=== PATIENT | male | born 1970 | race Caucasian/White ===

== ENCOUNTER → 2018-02-18 | Outpatient (REF) | payer BC | LOC: M LAB REF 13:16 | DX: J02.9 Acute pharyngitis, unspecified (principal) ==

== ENCOUNTER 2025-01-17 15:29 | Inpatient (IN) | payer BC ==
[~2025-01-17] VITALS: Ht 170.2 cm; Wt 126.8 kg
[2025-01-17 11:10] VITALS: BP 125/81; TEMP 101.5; O2SAT 97
[2025-01-17] MEDS ORDERED: HYDR-3363 PO (15:47)
[2025-01-17] MEDS ORDERED: PRAV40TA85 PO (15:47)
[2025-01-17] MEDS ORDERED: CLOTLOT2 TOP (15:47)
[2025-01-17] MEDS ORDERED: TALT80IN7 INJ (15:47)
[2025-01-17] MEDS ORDERED: BUPR15TASR PO (15:47)
[2025-01-17] MEDS ORDERED: PROP60CA PO (15:47)
[2025-01-17] MEDS ORDERED: TRAZ-252 PO (15:47)
[2025-01-17 16:18] LABS: BASO # 0.1 10^3/uL (0.0-0.2); BASO % 0.3 % (0.0-1.0); EOS # 0.1 10^3/uL (0.0-0.5); EOS % 0.7 % (0.0-3.0); LYMPH # 1.0 10^3/uL (1.5-5.0); LYMPH % 4.8 % (24.0-44.0); MONO # 1.0 10^3/uL (0.0-0.8); MONO % 4.8 % (2.0-8.0); NEUTROPHILS # 17.7 10^3/uL (1.5-8.5); NEUTROPHILS % 89.0 % (36.0-66.0); PLATELET COUNT, AUTOMATED 346 10^3/uL (150-450)
[2025-01-17 16:39] LABS: ALT/SGPT 30.0 U/L (7.0-40); AST/SGOT 26.0 U/L (<34)
[2025-01-17] MEDS ORDERED: ISOVUE-370 76% 100 ML VIAL As Ordered ONE (16:41)
[2025-01-17] MEDS: NS (Normal Saline) 0.9% 1,000 ML IV ONE ×2 (17:05→18:17)
[2025-01-17] MEDS: ACETAMINOPHEN *IV* 1,000 MG in IV 1 EA IV ONE (17:05)
[2025-01-17 17:35] LABS: CALCIUM LEVEL 9.2 MG/DL (8.5-10.1); CARBON DIOXIDE LEVEL 28.0 MMOL/L (20-31); CHLORIDE LEVEL 101.0 MMOL/L (98-107); CREATININE FOR GFR 1.19 MG/DL (0.70-1.30); GLOMERULAR FILTRATION RATE 72.1 (>56); POTASSIUM SERUM 5.0 MMOL/L (3.5-5.1); SODIUM LEVEL 139.0 MMOL/L (136-145)
[2025-01-17] MEDS: KETOROLAC 30 MG/ML 1 ML VIAL IV ONE (18:17)
[2025-01-17] MEDS ORDERED: LORA-243 PO (19:28)
[2025-01-17] MEDS ORDERED: THERTAB52 PO (19:28)
[2025-01-17] MEDS ORDERED: MED REC COMMENT (19:28)
[2025-01-17] MEDS ORDERED: HOME MED LIST COMPLETE! XX SCH (19:30)
[2025-01-17] MEDS: NS (Normal Saline) 0.9% 1,000 ML IV SCH (20:29)
[2025-01-17] MEDS: PIPERACILLIN/TAZOBACTAM SOD 3.375 GM in DEXTROSE 5% (D5W) ADV/MINI-BAG 50 ML IV SCH (21:29)
[2025-01-17] MEDS: PROPRANOLOL 60MG LA CAP PO SCH (21:32)
[2025-01-17 23:10] VITALS: BP 125/81; TEMP 101.5; O2SAT 97
[2025-01-18] VITALS (7 sets, daily range): BP systolic 113–134; BP diastolic 70–86; TEMP 97.9–101.8; O2SAT 95–98
[2025-01-18] MEDS: ACETAMINOPHEN *IV* 1,000 MG in IV 1 EA IV ONE (00:33)
[2025-01-18] MEDS: PANTOPRAZOLE 40MG VIAL IV SCH (08:15)
[2025-01-18] MEDS: RIVAROXABAN 10MG TAB PO SCH (08:15)
[2025-01-18] MEDS: KETOROLAC 30 MG/ML 1 ML VIAL IV PRN (08:23)
[2025-01-18 09:43] LABS: BASO % 0.1 % (0.0-1.0); EOS % 0.2 % (0.0-3.0); LYMPH % 4.5 % (24.0-44.0); MONO % 4.0 % (2.0-8.0); NEUTROPHILS % 90.7 % (36.0-66.0); PLATELET COUNT, AUTOMATED 290 10^3/uL (150-450)
[2025-01-18 09:44] LABS: BASO # 0.0 10^3/uL (0.0-0.2); EOS # 0.1 10^3/uL (0.0-0.5); LYMPH # 0.9 10^3/uL (1.5-5.0); MONO # 0.8 10^3/uL (0.0-0.8); NEUTROPHILS # 18.9 10^3/uL (1.5-8.5)
[2025-01-18 10:17] LABS: CALCIUM LEVEL 8.3 MG/DL (8.5-10.1); CARBON DIOXIDE LEVEL 25.0 MMOL/L (20-31); CHLORIDE LEVEL 107.0 MMOL/L (98-107); CREATININE FOR GFR 1.25 MG/DL (0.70-1.30); GLOMERULAR FILTRATION RATE 68.0 (>56); POTASSIUM SERUM 4.5 MMOL/L (3.5-5.1); SODIUM LEVEL 140.0 MMOL/L (136-145)
[2025-01-18] MEDS: LR 1,000 ML IV SCH (11:01)
[2025-01-18 15:18] LABS: KETONE, URINE AUTO RFX TRACE mg/dL (NEGATIVE); LEUKOCYTE ESTERASE UR AUTO RFX NEGATIVE (NEGATIVE); MUCUS, URINE RFX SMALL (NEGATIVE); NITRITE, URINE AUTO RFX NEGATIVE (NEGATIVE); RBC, URINE AUTO RFX 3 /HPF (0-3); SQUAM EPITHELIAL CELL UR AURFX 0 /HPF (0-6); WBC, URINE AUTO RFX 9 /HPF (0-3)
[2025-01-18] MEDS: ACETAMINOPHEN 325 MG TAB PO PRN (16:42)
[2025-01-19] VITALS (10 sets, daily range): BP systolic 109–110; BP diastolic 72–74; TEMP 99.1–100.7; O2SAT 94–97
[2025-01-19 09:12] LABS: CALCIUM LEVEL 8.8 MG/DL (8.5-10.1); CARBON DIOXIDE LEVEL 28.0 MMOL/L (20-31); CHLORIDE LEVEL 105.0 MMOL/L (98-107); CREATININE FOR GFR 1.59 MG/DL (0.70-1.30); GLOMERULAR FILTRATION RATE 51.0 (>56); POTASSIUM SERUM 4.1 MMOL/L (3.5-5.1); SODIUM LEVEL 142.0 MMOL/L (136-145)
[2025-01-19 09:14] LABS: PLATELET COUNT, AUTOMATED 331 10^3/uL (150-450)
[2025-01-19 09:33] LABS: ATYPICAL LYMPH 1 % (0-5); LYMPHOCYTES 1 % (16-44); MONOCYTES 1 % (0-5); NEUTROPHILS 81 % (28-66)
[2025-01-19 09:34] LABS: PLATELET ESTIMATE NORMAL (NORMAL)
[2025-01-19] MEDS: CIPROFLOXACIN 400 MG in IV 1 EA IV SCH (10:13)
[2025-01-19] MEDS: metroNIDAZOLE 500 MG in IV 1 EA IV SCH (11:20)
[2025-01-19] MEDS ORDERED: ONDANSETRON 4MG 2ML VIAL IV PRN (17:10)
[2025-01-19] MEDS: MORPHINE 4 MG/ML 1 ML VIAL IV PRN (17:36)
[2025-01-19] MEDS: PIPERACILLIN/TAZOBACTAM SOD 3.375 GM in DEXTROSE 5% (D5W) ADV/MINI-BAG 50 ML IV SCH (17:59)
[2025-01-19] MEDS: buPROPion **SR** 150 MG TABLET PO SCH (20:18)
[2025-01-20 04:07] VITALS: BP 112/76; TEMP 97; O2SAT 97
[2025-01-20 06:50] LABS: BASO # 0.0 10^3/uL (0.0-0.2); BASO % 0.2 % (0.0-1.0); EOS # 0.4 10^3/uL (0.0-0.5); EOS % 2.2 % (0.0-3.0); LYMPH # 0.9 10^3/uL (1.5-5.0); LYMPH % 4.5 % (24.0-44.0); MONO # 0.9 10^3/uL (0.0-0.8); MONO % 4.6 % (2.0-8.0); NEUTROPHILS # 16.4 10^3/uL (1.5-8.5); NEUTROPHILS % 87.0 % (36.0-66.0); PLATELET COUNT, AUTOMATED 279 10^3/uL (150-450)
[2025-01-20 07:13] LABS: CALCIUM LEVEL 8.3 MG/DL (8.5-10.1); CARBON DIOXIDE LEVEL 24.0 MMOL/L (20-31); CHLORIDE LEVEL 108.0 MMOL/L (98-107); CREATININE FOR GFR 1.39 MG/DL (0.70-1.30); GLOMERULAR FILTRATION RATE 59.9 (>56); POTASSIUM SERUM 4.0 MMOL/L (3.5-5.1); SODIUM LEVEL 143.0 MMOL/L (136-145)
[2025-01-20] MEDS: HEPARIN SOD 5000 UNITS/ML 1 ML VIAL/SYRINGE SQ SCH (11:23)
[2025-01-20 11:28] VITALS: BP 119/79; TEMP 98.8; O2SAT 99
[2025-01-20] MEDS: MORPHINE 4 MG/ML 1 ML VIAL IV PRN (14:35)
[2025-01-20 20:42] VITALS: BP 120/81; TEMP 97; O2SAT 97
[2025-01-21 03:10] VITALS: BP 116/74; TEMP 97.4; O2SAT 99
[2025-01-21 06:24] LABS: BASO # 0.1 10^3/uL (0.0-0.2); BASO % 0.5 % (0.0-1.0); EOS # 0.5 10^3/uL (0.0-0.5); EOS % 4.9 % (0.0-3.0); LYMPH # 0.7 10^3/uL (1.5-5.0); LYMPH % 6.6 % (24.0-44.0); MONO # 0.8 10^3/uL (0.0-0.8); MONO % 7.3 % (2.0-8.0); NEUTROPHILS # 8.5 10^3/uL (1.5-8.5); NEUTROPHILS % 80.0 % (36.0-66.0); PLATELET COUNT, AUTOMATED 306 10^3/uL (150-450)
[2025-01-21 06:51] LABS: CALCIUM LEVEL 8.0 MG/DL (8.5-10.1); CARBON DIOXIDE LEVEL 28.0 MMOL/L (20-31); CHLORIDE LEVEL 106.0 MMOL/L (98-107); CREATININE FOR GFR 1.34 MG/DL (0.70-1.30); GLOMERULAR FILTRATION RATE 62.6 (>56); POTASSIUM SERUM 3.7 MMOL/L (3.5-5.1); SODIUM LEVEL 143.0 MMOL/L (136-145)
[2025-01-21 11:56] VITALS: BP 136/92; TEMP 99.2; O2SAT 95
[2025-01-21 20:08] VITALS: BP 138/94; TEMP 99.9; O2SAT 96
[2025-01-22 04:43] VITALS: BP 111/73; TEMP 97.3; O2SAT 92
[2025-01-22 06:55] LABS: BASO # 0.1 10^3/uL (0.0-0.2); BASO % 0.7 % (0.0-1.0); EOS # 0.4 10^3/uL (0.0-0.5); EOS % 5.5 % (0.0-3.0); LYMPH # 0.7 10^3/uL (1.5-5.0); LYMPH % 8.6 % (24.0-44.0); MONO # 0.9 10^3/uL (0.0-0.8); MONO % 11.8 % (2.0-8.0); NEUTROPHILS # 5.6 10^3/uL (1.5-8.5); NEUTROPHILS % 72.4 % (36.0-66.0); PLATELET COUNT, AUTOMATED 336 10^3/uL (150-450)
[2025-01-22 07:19] LABS: CALCIUM LEVEL 8.1 MG/DL (8.5-10.1); CARBON DIOXIDE LEVEL 27.0 MMOL/L (20-31); CHLORIDE LEVEL 105.0 MMOL/L (98-107); CREATININE FOR GFR 1.26 MG/DL (0.70-1.30); GLOMERULAR FILTRATION RATE 67.4 (>56); POTASSIUM SERUM 3.8 MMOL/L (3.5-5.1); SODIUM LEVEL 142.0 MMOL/L (136-145)
[2025-01-22] MEDS: GASTROGRAFIN SOLUTION 30ML PO SCH (09:26)
[2025-01-22 11:48] VITALS: BP 116/81; TEMP 98.8; O2SAT 96
[2025-01-22] MEDS: LIDOCAINE 1% MDV 20 ML VIAL SC ONE (16:10)
[2025-01-22] MEDS: CIPROFLOXACIN 500 MG TABLET PO SCH (18:28)
[2025-01-22 19:34] VITALS: BP 134/87; TEMP 99.9; O2SAT 97
[2025-01-23 04:09] VITALS: BP 121/81; TEMP 97; O2SAT 95
[2025-01-23 06:30] LABS: BASO # 0.1 10^3/uL (0.0-0.2); BASO % 0.6 % (0.0-1.0); EOS # 0.3 10^3/uL (0.0-0.5); EOS % 3.5 % (0.0-3.0); LYMPH # 0.9 10^3/uL (1.5-5.0); LYMPH % 10.6 % (24.0-44.0); MONO # 1.0 10^3/uL (0.0-0.8); MONO % 11.3 % (2.0-8.0); NEUTROPHILS # 6.2 10^3/uL (1.5-8.5); NEUTROPHILS % 72.4 % (36.0-66.0); PLATELET COUNT, AUTOMATED 394 10^3/uL (150-450)
[2025-01-23 06:53] LABS: CALCIUM LEVEL 8.0 MG/DL (8.5-10.1); CARBON DIOXIDE LEVEL 30.0 MMOL/L (20-31); CHLORIDE LEVEL 105.0 MMOL/L (98-107); CREATININE FOR GFR 1.14 MG/DL (0.70-1.30); GLOMERULAR FILTRATION RATE 76.0 (>56); POTASSIUM SERUM 3.9 MMOL/L (3.5-5.1); SODIUM LEVEL 142.0 MMOL/L (136-145)
[2025-01-23 12:30] VITALS: BP 130/87; TEMP 99.2; O2SAT 97
[2025-01-23] MEDS ORDERED: MORPHINE 4 MG/ML 1 ML VIAL IV PRN (13:00)
[2025-01-23 19:37] VITALS: BP 135/88; TEMP 100.6; O2SAT 95
[2025-01-23 21:25] VITALS: TEMP 99.7
[2025-01-24 03:56] VITALS: BP 116/79; TEMP 97.5; O2SAT 98
[2025-01-24 06:36] LABS: PLATELET COUNT, AUTOMATED 433 10^3/uL (150-450)
[2025-01-24 06:48] LABS: CALCIUM LEVEL 7.9 MG/DL (8.5-10.1); CARBON DIOXIDE LEVEL 28.0 MMOL/L (20-31); CHLORIDE LEVEL 103.0 MMOL/L (98-107); CREATININE FOR GFR 1.09 MG/DL (0.70-1.30); GLOMERULAR FILTRATION RATE 80.2 (>56); MAGNESIUM LEVEL 2.1 MG/DL (1.8-2.4); POTASSIUM SERUM 3.9 MMOL/L (3.5-5.1); SODIUM LEVEL 141.0 MMOL/L (136-145)
[2025-01-24] MEDS ORDERED: LIDOCAINE 1% MDV 20 ML VIAL SC ONE (11:15)
[2025-01-24] MEDS ORDERED: ISOVUE-300 61% 100 ML VIAL IV ONE (11:15)
[2025-01-24] MEDS: NS (Normal Saline) 0.9% 1,000 ML IV SCH ×2 (11:20→13:06)
[2025-01-24] MEDS: LIDOCAINE 1% MDV 20 ML VIAL SC SCH (11:20)
[2025-01-24] MEDS: SODIUM CHLORIDE 0.9% 1000 ML XX SCH (11:20)
[2025-01-24] MEDS ORDERED: MIDAZOLAM INJ 2 MG/2 ML VIAL IV PRN (11:20)
[2025-01-24] MEDS: ISOVUE-300 61% 100 ML VIAL IV SCH (12:34)
[2025-01-24 13:00] VITALS: BP 152/94; TEMP 97.2; O2SAT 98
[2025-01-24] MEDS: metroNIDAZOLE 500 MG in IV 1 EA IV SCH (14:04)
[2025-01-24] MEDS: CIPROFLOXACIN 400 MG in IV 1 EA IV SCH (17:34)
[2025-01-24 19:19] VITALS: BP 122/75; TEMP 97.2; O2SAT 98
[2025-01-24 19:23] VITALS: BP 122/75
[2025-01-24 20:45] VITALS: BP 136/89; TEMP 100.1; O2SAT 97
[2025-01-25 04:34] VITALS: BP 124/83; TEMP 98.6; O2SAT 98
[2025-01-25 06:41] LABS: BASO # 0.0 10^3/uL (0.0-0.2); BASO % 0.4 % (0.0-1.0); EOS # 0.2 10^3/uL (0.0-0.5); EOS % 2.0 % (0.0-3.0); LYMPH # 1.2 10^3/uL (1.5-5.0); LYMPH % 11.9 % (24.0-44.0); MONO # 0.9 10^3/uL (0.0-0.8); MONO % 9.0 % (2.0-8.0); NEUTROPHILS # 7.6 10^3/uL (1.5-8.5); NEUTROPHILS % 74.7 % (36.0-66.0); PLATELET COUNT, AUTOMATED 436 10^3/uL (150-450)
[2025-01-25 06:46] LABS: CALCIUM LEVEL 7.6 MG/DL (8.5-10.1); CARBON DIOXIDE LEVEL 25.0 MMOL/L (20-31); CHLORIDE LEVEL 106.0 MMOL/L (98-107); CREATININE FOR GFR 1.0 MG/DL (0.70-1.30); GLOMERULAR FILTRATION RATE 88.9 (>56); MAGNESIUM LEVEL 2.1 MG/DL (1.8-2.4); POTASSIUM SERUM 4.0 MMOL/L (3.5-5.1); SODIUM LEVEL 141.0 MMOL/L (136-145)
[2025-01-25] MEDS ORDERED: PROBCAP14 PO (12:30)
[2025-01-25] MEDS ORDERED: CIPR-249 PO (12:30)
[2025-01-25] MEDS ORDERED: METR-265 PO (12:30)
[2025-01-25] MEDS ORDERED: SIME80CH6 PO (12:30)
[2025-01-25] MEDS ORDERED: PROT1TAB2 PO (12:30)
[2025-01-25] MEDS ORDERED: [UNRECOGNIZED DRUG - CODE] IVFLUSH (12:50)
[2025-01-25] MEDS ORDERED: SIMETHICONE 80MG CHEW TAB PO SCH (16:00)
[2025-01-26] MEDS ORDERED: CEFD1CAP9 PO (17:31)
== END 2025-01-25 13:16 | disposition home or self-care (01) | DRG 710 ==
LOC: EDBD 15:29 → M ED 15:29 → M ED INP 20:11 → M MSPAV 23:05
PROVIDERS: ADMIT Student in an Organized Health Care Education/Training Program; ATTEND Student in an Organized Health Care Education/Training Program
PROC: 0W9F30Z Drainage of Abdominal Wall with Drainage Device, Percutaneous Approach (ICD-10-PCS; principal; 2025-01-23)
PROC: 0WJG4ZZ Inspection of Peritoneal Cavity, Percutaneous Endoscopic Approach (ICD-10-PCS; 2025-01-24)
DX: A41.9 Sepsis, unspecified organism (principal); N17.9 Acute kidney failure, unspecified; Z68.41 Body mass index [BMI] 40.0-44.9, adult; K57.20 Diverticulitis of large intestine with perforation and abscess without bleeding; E66.01 Morbid (severe) obesity due to excess calories; M41.85 Other forms of scoliosis, thoracolumbar region; K76.0 Fatty (change of) liver, not elsewhere classified; I10 Essential (primary) hypertension; J45.909 Unspecified asthma, uncomplicated; G47.33 Obstructive sleep apnea (adult) (pediatric); F41.9 Anxiety disorder, unspecified; Z88.8 Allergy status to other drugs, medicaments and biological substances; Z79.899 Other long term (current) drug therapy; Z88.7 Allergy status to serum and vaccine; K42.9 Umbilical hernia without obstruction or gangrene